=== PATIENT | female | born 1975 | race Caucasian/White ===

== ENCOUNTER → 2017-02-09 | Outpatient (CLI) | payer OTHER | LOC: FIMAGING 18:04 | PROVIDERS: ATTEND Internal Medicine | DX: G44.53 Primary thunderclap headache (principal) ==

== ENCOUNTER → 2017-06-27 | Outpatient (CLI) | payer BC | LOC: BMCIMAGING 08:20 | PROVIDERS: ATTEND Orthopaedic Surgery Hand Surgery | DX: M79.644 Pain in right finger(s) (principal) ==

== ENCOUNTER → 2017-09-15 | Outpatient (CLI) | payer BC | LOC: BMCIMAGING 13:18 | PROVIDERS: ATTEND Internal Medicine | DX: Z12.31 Encounter for screening mammogram for malignant neoplasm of breast (principal); Z80.3 Family history of malignant neoplasm of breast | CPT/HCPCS: G0202 ==